=== PATIENT | male | born 1935 | race Asian ===

== ENCOUNTER 2023-05-26 13:54 | Inpatient (IN) | payer OTHER, BC ==
[~2023-05-26] VITALS: Ht 165.1 cm; Wt 50.8 kg
[2023-05-26 15:10] LABS: BASOPHILS % (AUTO) 0.4 % (0.0-2.0); EOSINOPHILS % (AUTO) 0.6 % (0.0-6.0); HEMATOCRIT 32 % (39-51); HEMOGLOBIN 10.1 g/dL (13.5-17.5); LYMPHOCYTES # (AUTO) 0.6 K/uL (0.8-4.8); LYMPHOCYTES % (AUTO) 9.6 % (20.0-44.0); MEAN CORPUSCULAR HEMOGLOBIN 26 PG (26.0-33.0); MEAN CORPUSCULAR HGB CONC 32 g/dl (31.0-36.0); MEAN CORPUSCULAR VOLUME 80 fL (80-96); MONOCYTES # (AUTO) 0.9 K/uL (0.1-1.30); MONOCYTES % (AUTO) 13.6 % (2.0-12.0); NEUTROPHILS # (AUTO) 4.9 K/uL (1.8-8.9); NEUTROPHILS % (AUTO) 75.8 % (43.0-81.0); PLATELET COUNT (AUTO) 259 K/uL (150-450); RED BLOOD CELL COUNT(AUTO) 3.95 MIL/uL (4.5-6.0); RED CELL DISTRIBUTION WIDTH 21.7 % (11.5-15.0); WHITE BLOOD COUNT (AUTO) 6.4 K/uL (4.3-11.0)
[2023-05-26 15:26] LABS: ALANINE AMINOTRANSFERASE 54 U/L (12-78); ALBUMIN 3.4 g/dL (3.4-5.0); ALKALINE PHOSPHATASE 96 U/L (46-116); ASPARTATE AMINOTRANSFERASE 45 U/L (15-37); BILIRUBIN,DIRECT 0.3 mg/dL (0.0-0.2); BILIRUBIN,TOTAL 0.7 mg/dL (0.2-1.0); CALCIUM, SERUM 10.2 mg/dL (8.5-10.1); CARBON DIOXIDE 26 mmol/L (21-32); CHLORIDE 101 mmol/L (98-107); CREATININE 2.1 mg/dL (0.6-1.3); GLUCOSE 116 mg/dL (74-106); POTASSIUM 2.9 mmol/L (3.5-5.1); SODIUM SERUM 140 mmol/L (136-145); TOTAL PROTEIN, SERUM 8.1 g/dL (6.4-8.2); UREA NITROGEN, BLOOD 28 mg/dL (7-18)
[2023-05-26 15:29] LABS: INR 1.07 (0.91-1.10); PROTHROMBIN TIME 11.2 SECS (9.2-11.1)
[2023-05-26] MEDS ORDERED: POTASSIUM CHLORIDE 20 MEQ TAB.PRT.SR PO ONE ×4 (16:00→20:30)
[2023-05-26] MEDS ORDERED: ASPIRIN 81 MG TAB.CHEW ONE (16:13)
[2023-05-26] MEDS ORDERED: AMLO1CAP6 PO (16:28)
[2023-05-26] MEDS ORDERED: METO25TA4 PO (16:28)
[2023-05-26] MEDS ORDERED: TAMS-12 PO (16:28)
[2023-05-26] MEDS ORDERED: ZOLP5TAB8 PO (16:28)
[2023-05-26] MEDS ORDERED: ASPI-1420 PO (16:28)
[2023-05-26] MEDS ORDERED: LORA-259 PO (16:28)
[2023-05-26] MEDS ORDERED: ASPIRIN EC 81 MG TABLET.DR PO ONE (16:30)
[2023-05-26 18:20] VITALS: BP 143/91; TEMP 97.9; O2SAT 96
[2023-05-26 20:00] VITALS: BP 133/84; TEMP 98.1; O2SAT 96
[2023-05-26] MEDS ORDERED: BISACODYL (5 MG) 5 MG TABLET.DR PO ONE (20:30)
[2023-05-26] MEDS ORDERED: ONDANSETRON HCL/PF 4 MG/2 ML VIAL IV PRN (21:00)
[2023-05-26] MEDS ORDERED: ACETAMINOPHEN 325 MG TABLET PO PRN (21:00)
[2023-05-26] MEDS: ATORVASTATIN 10 MG TABLET PO SCH (21:19)
[2023-05-26] MEDS: HEPARIN SODIUM, PORCINE 5000 UNITS/1 ML VIAL SQ SCH (21:25)
[2023-05-26] MEDS: TAMSULOSIN 0.4 MG CAP.SR.24H PO SCH (21:27)
[2023-05-26] MEDS: AMLODIPINE BESYLATE 5 MG TABLET PO SCH (21:27)
[2023-05-26] MEDS: METOPROLOL SUCCINATE 25 MG TAB.SR.24H PO SCH (21:27)
[2023-05-26] MEDS: POLYETHYLENE GLYCOL 3350 17 GM POWD.PACK PO SCH (21:28)
[2023-05-26] MEDS ORDERED: ZOLPIDEM TARTRATE 5 MG TABLET PO ONE (22:00)
[2023-05-27] VITALS: BP 108/69; TEMP 97.9; O2SAT 93
[2023-05-27] MEDS ORDERED: BISACODYL SUPP (10 MG) 10 MG/SUPP.RECT SUPP.RECT RC ONE (02:00)
[2023-05-27] MEDS ORDERED: NA PHOS,M-B/NA PHOS,DI-BA 1 EA ENEMA RC PRN (02:00)
[2023-05-27 04:00] VITALS: BP 124/97; TEMP 97.7; O2SAT 95
[2023-05-27 08:00] VITALS: BP 137/98; TEMP 97.3; O2SAT 93
[2023-05-27] MEDS ORDERED: BUMETANIDE INJ 8 MG in IV NS 0.9% 48 ML IV ONE (08:00)
[2023-05-27] MEDS: ASPIRIN EC 81 MG TABLET.DR PO SCH (08:09)
[2023-05-27] MEDS: METOPROLOL SUCCINATE 25 MG TAB.SR.24H PO SCH ×2 (08:09→09:32)
[2023-05-27] MEDS: TAMSULOSIN 0.4 MG CAP.SR.24H PO SCH ×2 (08:09→16:30)
[2023-05-27] MEDS: AMLODIPINE BESYLATE 5 MG TABLET PO SCH (08:10)
[2023-05-27] MEDS: HEPARIN SODIUM, PORCINE 5000 UNITS/1 ML VIAL SQ SCH ×2 (08:13→21:00)
[2023-05-27 08:14] VITALS: BP 138/80
[2023-05-27] MEDS ORDERED: FUROSEMIDE 40 MG/4 ML VIAL IV SCH (09:00)
[2023-05-27] MEDS ORDERED: HEPARIN SODIUM, PORCINE 5000 UNITS/1 ML VIAL SQ SCH (09:00)
[2023-05-27] MEDS ORDERED: LACTULOSE 10 G/15 ML UDC (PYXIS) PO ONE (09:30)
[2023-05-27 10:03] LABS: BASOPHILS % (AUTO) 0.8 % (0.0-2.0); EOSINOPHILS % (AUTO) 0.3 % (0.0-6.0); HEMATOCRIT 32 % (39-51); HEMOGLOBIN 10.5 g/dL (13.5-17.5); LYMPHOCYTES # (AUTO) 0.5 K/uL (0.8-4.8); LYMPHOCYTES % (AUTO) 8.1 % (20.0-44.0); MEAN CORPUSCULAR HEMOGLOBIN 26 PG (26.0-33.0); MEAN CORPUSCULAR HGB CONC 32 g/dl (31.0-36.0); MEAN CORPUSCULAR VOLUME 80 fL (80-96); MONOCYTES # (AUTO) 0.8 K/uL (0.1-1.30); MONOCYTES % (AUTO) 13.7 % (2.0-12.0); NEUTROPHILS # (AUTO) 4.7 K/uL (1.8-8.9); NEUTROPHILS % (AUTO) 77.1 % (43.0-81.0); PLATELET COUNT (AUTO) 274 K/uL (150-450); RED BLOOD CELL COUNT(AUTO) 4.06 MIL/uL (4.5-6.0); RED CELL DISTRIBUTION WIDTH 21.6 % (11.5-15.0); WHITE BLOOD COUNT (AUTO) 6.1 K/uL (4.3-11.0)
[2023-05-27 10:20] LABS: ALANINE AMINOTRANSFERASE 52 U/L (12-78); ALBUMIN 3.4 g/dL (3.4-5.0); ALKALINE PHOSPHATASE 89 U/L (46-116); ASPARTATE AMINOTRANSFERASE 46 U/L (15-37); BILIRUBIN,TOTAL 0.7 mg/dL (0.2-1.0); CALCIUM, SERUM 9.9 mg/dL (8.5-10.1); CARBON DIOXIDE 25 mmol/L (21-32); CHLORIDE 102 mmol/L (98-107); CREATININE 2.4 mg/dL (0.6-1.3); GLUCOSE 126 mg/dL (74-106); POTASSIUM 3.8 mmol/L (3.5-5.1); SODIUM SERUM 138 mmol/L (136-145); TOTAL PROTEIN, SERUM 8.4 g/dL (6.4-8.2); UREA NITROGEN, BLOOD 31 mg/dL (7-18)
[2023-05-27 10:21] LABS: CHOLESTEROL 187 mg/dL (<200); HDL CHOLESTEROL 82 mg/dL (40-60); LDL 92 mg/dL (0-99); THYROID STIMULATING HORMONE 5.244 uIU/mL (0.358-3.74); TRIGLYCERIDES 60 mg/dL (30-150)
[2023-05-27 10:39] LABS: IRON, SERUM 25 ug/dl (50-175); TOTAL IRON BINDING CAPACITY 391 ug/dl (250-450)
[2023-05-27 11:30] LABS: APPEARANCE,URINE CLEAR (CLEAR); BILIRUBIN,URINE NEGATIVE (NEGATIVE); BLOOD, URINE NEGATIVE Ery/uL (NEGATIVE); COLOR,URINE YELLOW (YELLOW); KETONES,URINE NEGATIVE (NEGATIVE); LEUKOCYTE ESTERASE ,URINE TRACE (NEGATIVE); NITRITE, URINE NEGATIVE (NEGATIVE); PROTEIN,URINE TRACE mg/dl (NEGATIVE); UGLUCOSE NEGATIVE (NEGATIVE); UROBILINOGEN,URINE 0.2 EU/dL (0.2)
[2023-05-27 11:52] LABS: ADD URINE CULTURE NO; BACTERIA,URINE None seen /HPF (None Seen); RBC,URINE 0-2 /HPF (0-2); SQUAMOUS EPITHELIAL CELL,UR Rare /HPF (None Seen)
[2023-05-27 12:00] VITALS: BP 136/96; TEMP 97.7; O2SAT 95
[2023-05-27 16:36] VITALS: BP 112/80; TEMP 95; O2SAT 95
[2023-05-27] MEDS: HYDROCODONE/APAP 5/325MG TABLET PO PRN (16:48)
[2023-05-27] MEDS: ATORVASTATIN 10 MG TABLET PO SCH (21:15)
[2023-05-27] MEDS: POLYETHYLENE GLYCOL 3350 17 GM POWD.PACK PO SCH (21:15)
[2023-05-28 04:22] LABS: APPEARANCE,URINE TURBID (CLEAR); BILIRUBIN,URINE NEGATIVE (NEGATIVE); BLOOD, URINE 3+ Ery/uL (NEGATIVE); COLOR,URINE RED (YELLOW); KETONES,URINE TRACE mg/dL (NEGATIVE); LEUKOCYTE ESTERASE ,URINE 2+ (NEGATIVE); NITRITE, URINE POSITIVE (NEGATIVE); PH,URINE 7.5 (5.0-8.0); PROTEIN,URINE 3+ mg/dl (NEGATIVE); UGLUCOSE NEGATIVE (NEGATIVE)
[2023-05-28 04:26] LABS: ADD URINE CULTURE YES; BACTERIA,URINE Few /HPF (None Seen); RBC,URINE TOO NUMEROUS TO COUN /HPF (0-2); SQUAMOUS EPITHELIAL CELL,UR Rare /HPF (None Seen); WBC,URINE 21-50 /HPF (0-3)
[2023-05-28 04:27] LABS: EOSINOPHIL,URINE None Seen
[2023-05-28 04:31] LABS: CREATININE, URINE 17.1 MG/DL (30.0-125.0); URINE TOTAL PROTEIN 297.8 mg/dL (0-11.9)
[2023-05-28 07:41] LABS: BASOPHILS % (AUTO) 0.4 % (0.0-2.0); EOSINOPHILS % (AUTO) 0.3 % (0.0-6.0); HEMATOCRIT 30 % (39-51); HEMOGLOBIN 9.5 g/dL (13.5-17.5); LYMPHOCYTES # (AUTO) 0.4 K/uL (0.8-4.8); LYMPHOCYTES % (AUTO) 6.6 % (20.0-44.0); MEAN CORPUSCULAR HEMOGLOBIN 26 PG (26.0-33.0); MEAN CORPUSCULAR HGB CONC 32 g/dl (31.0-36.0); MEAN CORPUSCULAR VOLUME 80 fL (80-96); MONOCYTES # (AUTO) 0.9 K/uL (0.1-1.30); MONOCYTES % (AUTO) 13.2 % (2.0-12.0); NEUTROPHILS # (AUTO) 5.3 K/uL (1.8-8.9); NEUTROPHILS % (AUTO) 79.5 % (43.0-81.0); PLATELET COUNT (AUTO) 236 K/uL (150-450); RED BLOOD CELL COUNT(AUTO) 3.69 MIL/uL (4.5-6.0); RED CELL DISTRIBUTION WIDTH 21.3 % (11.5-15.0); WHITE BLOOD COUNT (AUTO) 6.7 K/uL (4.3-11.0)
[2023-05-28 08:03] LABS: CREATINE KINASE, TOTAL 311 U/L (39-308)
[2023-05-28] MEDS: HEPARIN SODIUM, PORCINE 5000 UNITS/1 ML VIAL SQ SCH (08:24)
[2023-05-28 08:41] LABS: CALCIUM, SERUM 9.5 mg/dL (8.5-10.1); CARBON DIOXIDE 25 mmol/L (21-32); CHLORIDE 102 mmol/L (98-107); CREATININE 2.5 mg/dL (0.6-1.3); GLUCOSE 112 mg/dL (74-106); MAGNESIUM 2.1 mg/dL (1.8-2.4); PHOSPHORUS 4.7 mg/dL (2.5-4.9); POTASSIUM 3.4 mmol/L (3.5-5.1); SODIUM SERUM 142 mmol/L (136-145); UREA NITROGEN, BLOOD 37 mg/dL (7-18)
[2023-05-28 08:54] LABS: ALANINE AMINOTRANSFERASE 44 U/L (12-78); ALKALINE PHOSPHATASE 84 U/L (46-116); ASPARTATE AMINOTRANSFERASE 41 U/L (15-37); BILIRUBIN,TOTAL 0.7 mg/dL (0.2-1.0); TOTAL PROTEIN, SERUM 7.3 g/dL (6.4-8.2)
[2023-05-28] MEDS ORDERED: MINERAL OIL 133 ML (PYXIS) 1 EA ENEMA RC ONE (09:00)
[2023-05-28] MEDS: ASPIRIN EC 81 MG TABLET.DR PO SCH (09:19)
[2023-05-28] MEDS: FINASTERIDE (5 MG) 5 MG TABLET PO SCH (09:19)
[2023-05-28] MEDS: AMLODIPINE BESYLATE 5 MG TABLET PO SCH (09:19)
[2023-05-28] MEDS: TAMSULOSIN 0.4 MG CAP.SR.24H PO SCH ×2 (09:19→18:09)
[2023-05-28] MEDS: METOPROLOL SUCCINATE 25 MG TAB.SR.24H PO SCH (09:20)
[2023-05-28] MEDS: CEFTRIAXONE 1 G in IV D5W 50 ML IV SCH (09:58)
[2023-05-28] MEDS ORDERED: POTASSIUM CHLORIDE 10 MEQ TABLET.SA PO ONE (10:00)
[2023-05-28 10:36] VITALS: BP 119/62; TEMP 98.6; O2SAT 97
[2023-05-28] MEDS: SOD FERRIC GLUC 125 MG in IV NS 0.9% 100 ML IV SCH (14:17)
[2023-05-28] MEDS ORDERED: POTASSIUM CHLORIDE 20 MEQ TAB.PRT.SR PO ONE (17:30)
[2023-05-28] MEDS ORDERED: BUMETANIDE INJ 4 MG in IV NS 0.9% 24 ML IV ONE (17:30)
[2023-05-28 20:00] VITALS: BP 122/82; TEMP 98.1; O2SAT 95
[2023-05-28] MEDS: POLYETHYLENE GLYCOL 3350 17 GM POWD.PACK PO SCH (22:17)
[2023-05-28] MEDS: ATORVASTATIN 10 MG TABLET PO SCH (22:18)
[2023-05-29] VITALS: BP 126/54; TEMP 98; O2SAT 95
[2023-05-29 04:00] VITALS: BP 126/52; TEMP 98.1; O2SAT 96
[2023-05-29 06:06] LABS: PTH, INTACT 15 pg/mL (15-65)
[2023-05-29 06:15] LABS: BASOPHILS % (AUTO) 0.6 % (0.0-2.0); EOSINOPHILS # (AUTO) 0.1 K/uL (0.0-0.7); EOSINOPHILS % (AUTO) 1.1 % (0.0-6.0); HEMATOCRIT 32 % (39-51); HEMOGLOBIN 10.3 g/dL (13.5-17.5); LYMPHOCYTES # (AUTO) 0.5 K/uL (0.8-4.8); MEAN CORPUSCULAR HEMOGLOBIN 26 PG (26.0-33.0); MEAN CORPUSCULAR HGB CONC 32 g/dl (31.0-36.0); MEAN CORPUSCULAR VOLUME 80 fL (80-96); MONOCYTES # (AUTO) 0.9 K/uL (0.1-1.30); MONOCYTES % (AUTO) 11.7 % (2.0-12.0); NEUTROPHILS # (AUTO) 6.2 K/uL (1.8-8.9); NEUTROPHILS % (AUTO) 79.6 % (43.0-81.0); PLATELET COUNT (AUTO) 223 K/uL (150-450); RED CELL DISTRIBUTION WIDTH 20.5 % (11.5-15.0); WHITE BLOOD COUNT (AUTO) 7.7 K/uL (4.3-11.0)
[2023-05-29 06:53] LABS: CALCIUM, SERUM 8.7 mg/dL (8.5-10.1); CARBON DIOXIDE 27 mmol/L (21-32); CHLORIDE 103 mmol/L (98-107); CREATININE 2.2 mg/dL (0.6-1.3); GLUCOSE 98 mg/dL (74-106); MAGNESIUM 1.8 mg/dL (1.8-2.4); POTASSIUM 2.9 mmol/L (3.5-5.1); SODIUM SERUM 143 mmol/L (136-145); UREA NITROGEN, BLOOD 36 mg/dL (7-18)
[2023-05-29 07:03] LABS: ERYTHROCYTE SEDIMENTATION RATE 31 MM/HR (0-20)
[2023-05-29 08:00] VITALS: BP 136/70; TEMP 98; O2SAT 95
[2023-05-29 08:06] LABS: *SPE A/G RATIO 1.1 (0.7-1.7); *SPE ALBUMIN 3.3 g/dL (2.9-4.4); *SPE ALPHA-1-GLOBULIN 0.3 g/dL (0.0-0.4); *SPE ALPHA-2-GLOBULIN 0.6 g/dL (0.4-1.0); *SPE BETA GLOBULIN 0.9 g/dL (0.7-1.3); *SPE GLOBULIN, TOTAL 3.1 g/dL (2.2-3.9); *SPE M-SPIKE Not Observed g/dL (Not Observed); *SPE PROTEIN TOTAL 6.4 g/dL (6.0-8.5); *SPEGAMMA GLOBULIN 1.3 g/dL (0.4-1.8)
[2023-05-29] MEDS: CEFTRIAXONE 1 G in IV D5W 50 ML IV SCH (08:37)
[2023-05-29] MEDS: AMLODIPINE BESYLATE 5 MG TABLET PO SCH (08:38)
[2023-05-29] MEDS: FINASTERIDE (5 MG) 5 MG TABLET PO SCH (08:38)
[2023-05-29] MEDS: POTASSIUM CHLORIDE 20 MEQ TAB.PRT.SR PO SCH ×5 (08:38→13:42)
[2023-05-29] MEDS: ASPIRIN EC 81 MG TABLET.DR PO SCH (08:38)
[2023-05-29] MEDS: METOPROLOL SUCCINATE 25 MG TAB.SR.24H PO SCH (08:39)
[2023-05-29] MEDS: TAMSULOSIN 0.4 MG CAP.SR.24H PO SCH ×2 (08:39→17:54)
[2023-05-29] MEDS: ENSURE ENLIVE 237 ML LIQUID (VANILLA) PO SCH ×2 (09:19→17:55)
[2023-05-29 12:00] VITALS: BP 101/78; TEMP 98.5; O2SAT 99
[2023-05-29] MEDS: SOD FERRIC GLUC 125 MG in IV NS 0.9% 100 ML IV SCH (14:14)
[2023-05-29] MEDS: FUROSEMIDE 100 MG/10 ML VIAL IV SCH ×3 (14:30→23:00)
[2023-05-29 16:00] VITALS: BP 106/76; TEMP 97.7; O2SAT 96
[2023-05-29 20:00] VITALS: BP 104/64; TEMP 98; O2SAT 98
[2023-05-29] MEDS: POLYETHYLENE GLYCOL 3350 17 GM POWD.PACK PO SCH (21:26)
[2023-05-29] MEDS: ATORVASTATIN 10 MG TABLET PO SCH (21:26)
[2023-05-30] VITALS: BP 102/67; TEMP 97.5; O2SAT 98
[2023-05-30 04:00] VITALS: BP 98/57; TEMP 98.1; O2SAT 97
[2023-05-30 05:08] LABS: HEPATITIS B SURFACE AB Non Reactive (.)
[2023-05-30 07:06] LABS: COMPLEMENT C3, SERUM 100 mg/dL (82-167); COMPLEMENT C4, SERUM 29 mg/dL (12-38)
[2023-05-30] MEDS: FINASTERIDE (5 MG) 5 MG TABLET PO SCH (08:12)
[2023-05-30] MEDS: ASPIRIN EC 81 MG TABLET.DR PO SCH (08:12)
[2023-05-30] MEDS: TAMSULOSIN 0.4 MG CAP.SR.24H PO SCH ×2 (08:12→16:36)
[2023-05-30] MEDS: ENSURE ENLIVE 237 ML LIQUID (VANILLA) PO SCH ×2 (08:15→17:13)
[2023-05-30] MEDS: METOPROLOL SUCCINATE 25 MG TAB.SR.24H PO SCH (08:23)
[2023-05-30] MEDS: AMLODIPINE BESYLATE 5 MG TABLET PO SCH (08:23)
[2023-05-30] MEDS: CEFTRIAXONE 1 G in IV D5W 50 ML IV SCH (08:58)
[2023-05-30] MEDS ORDERED: POTASSIUM CHLORIDE 20 MEQ TAB.PRT.SR PO SCH (09:00)
[2023-05-30] MEDS ORDERED: METO25TA4 PO (09:01)
[2023-05-30] MEDS ORDERED: FINA5TAB3 PO (09:01)
[2023-05-30] MEDS ORDERED: FURO-144 PO (09:01)
[2023-05-30] MEDS ORDERED: CEPH250C PO (09:03)
[2023-05-30 09:29] LABS: BASOPHILS % (AUTO) 0.3 % (0.0-2.0); EOSINOPHILS # (AUTO) 0.3 K/uL (0.0-0.7); EOSINOPHILS % (AUTO) 2.8 % (0.0-6.0); HEMATOCRIT 33 % (39-51); HEMOGLOBIN 10.2 g/dL (13.5-17.5); LYMPHOCYTES # (AUTO) 0.3 K/uL (0.8-4.8); LYMPHOCYTES % (AUTO) 3.8 % (20.0-44.0); MEAN CORPUSCULAR HEMOGLOBIN 25 PG (26.0-33.0); MEAN CORPUSCULAR HGB CONC 31 g/dl (31.0-36.0); MEAN CORPUSCULAR VOLUME 82 fL (80-96); MONOCYTES # (AUTO) 0.8 K/uL (0.1-1.30); MONOCYTES % (AUTO) 8.7 % (2.0-12.0); NEUTROPHILS # (AUTO) 7.8 K/uL (1.8-8.9); NEUTROPHILS % (AUTO) 84.4 % (43.0-81.0); PLATELET COUNT (AUTO) 257 K/uL (150-450); RED BLOOD CELL COUNT(AUTO) 4.01 MIL/uL (4.5-6.0); RED CELL DISTRIBUTION WIDTH 20.7 % (11.5-15.0); WHITE BLOOD COUNT (AUTO) 9.3 K/uL (4.3-11.0)
[2023-05-30] MEDS: FUROSEMIDE 40 MG TABLET PO SCH (09:36)
[2023-05-30 09:43] LABS: ALANINE AMINOTRANSFERASE 40 U/L (12-78); ALBUMIN 2.8 g/dL (3.4-5.0); ALKALINE PHOSPHATASE 82 U/L (46-116); ASPARTATE AMINOTRANSFERASE 41 U/L (15-37); BILIRUBIN,TOTAL 0.4 mg/dL (0.2-1.0); CALCIUM, SERUM 8.8 mg/dL (8.5-10.1); CARBON DIOXIDE 27 mmol/L (21-32); CHLORIDE 104 mmol/L (98-107); CREATININE 2.1 mg/dL (0.6-1.3); GLUCOSE 201 mg/dL (74-106); MAGNESIUM 1.9 mg/dL (1.8-2.4); PHOSPHORUS 3.1 mg/dL (2.5-4.9); POTASSIUM 3.6 mmol/L (3.5-5.1); SODIUM SERUM 138 mmol/L (136-145); TOTAL PROTEIN, SERUM 7.3 g/dL (6.4-8.2); UREA NITROGEN, BLOOD 40 mg/dL (7-18)
[2023-05-30] MEDS: POTASSIUM CHLORIDE 20 MEQ TAB.PRT.SR PO SCH ×2 (09:54→10:00)
[2023-05-30 12:07] LABS: *ANA ANTI-CENTROMERE B AB <0.2 AI (0.0-0.9); *ANA ANTI-DNA(DS) AB, QN <1 IU/mL (0-9); *ANA ANTI-JO-1 <0.2 AI (0.0-0.9); *ANA ANTICHROMATIN ANTIBODY 0.2 AI (0.0-0.9); *ANA RNP ANTIBODIES <0.2 AI (0.0-0.9); *ANA SJOGREN'S ANTI-SS-A >8.0 AI (0.0-0.9); *ANA SJOGREN'S ANTI-SS-B <0.2 AI (0.0-0.9); *ANAANTI-SCLERODERMA-70 AB <0.2 AI (0.0-0.9); *ANASMITH AB <0.2 AI (0.0-0.9)
[2023-05-30] MEDS: SOD FERRIC GLUC 125 MG in IV NS 0.9% 100 ML IV SCH (14:11)
[2023-05-30 20:00] VITALS: BP 105/73; TEMP 97.6; O2SAT 93
[2023-05-30] MEDS: HYDROCODONE/APAP 5/325MG TABLET PO PRN (20:11)
[2023-05-30] MEDS: POLYETHYLENE GLYCOL 3350 17 GM POWD.PACK PO SCH (21:37)
[2023-05-30] MEDS: ATORVASTATIN 10 MG TABLET PO SCH (21:37)
[2023-05-31] VITALS: BP 134/90; TEMP 97.5; TEMP 97.8; O2SAT 95
[2023-05-31 04:00] VITALS: BP 100/62; TEMP 97.8; O2SAT 99
[2023-05-31] MEDS: ENSURE ENLIVE 237 ML LIQUID (VANILLA) PO SCH (07:42)
[2023-05-31 08:28] VITALS: BP 98/62
[2023-05-31] MEDS: TAMSULOSIN 0.4 MG CAP.SR.24H PO SCH (08:28)
[2023-05-31] MEDS: FINASTERIDE (5 MG) 5 MG TABLET PO SCH (08:28)
[2023-05-31] MEDS: METOPROLOL SUCCINATE 25 MG TAB.SR.24H PO SCH (08:28)
[2023-05-31] MEDS: FUROSEMIDE 40 MG TABLET PO SCH (08:28)
[2023-05-31] MEDS: ASPIRIN EC 81 MG TABLET.DR PO SCH (08:28)
[2023-05-31] MEDS: CEFTRIAXONE 1 G in IV D5W 50 ML IV SCH (08:28)
[2023-06-02 08:07] LABS: *PEU PROTEIN,TOTAL 28.6 mg/dL (Not Estab.); *PEUR ALBUMIN 43.6 % (.); *PEUR ALPHA-1-GLOBULIN 5.2 % (.); *PEUR ALPHA-2-GLOBULIN 12.9 % (.); *PEUR BETA GLOBULIN 20.5 % (.); *PEUR GAMMA GLOBULIN 17.9 % (.)
== END 2023-05-31 13:17 | DRG 280 ==
LOC: ER 13:56 → TELE 17:30 → MED 05-30 10:19
PROVIDERS: ADMIT Internal Medicine; ATTEND Internal Medicine
DX: I13.0 Hypertensive heart and chronic kidney disease with heart failure and stage 1 through stage 4 chronic kidney disease, or unspecified chronic kidney disease (principal); I21.A1 Myocardial infarction type 2; I50.23 Acute on chronic systolic (congestive) heart failure; N17.0 Acute kidney failure with tubular necrosis; N13.6 Pyonephrosis; I42.0 Dilated cardiomyopathy; N18.9 Chronic kidney disease, unspecified; E87.6 Hypokalemia; K59.00 Constipation, unspecified; Z88.0 Allergy status to penicillin; I25.2 Old myocardial infarction; D50.9 Iron deficiency anemia, unspecified; N40.1 Benign prostatic hyperplasia with lower urinary tract symptoms; R33.8 Other retention of urine; D17.79 Benign lipomatous neoplasm of other sites; R31.9 Hematuria, unspecified; Z20.822 Contact with and (suspected) exposure to COVID-19
CPT/HCPCS: 36415; 71045-TC; 74021; 76770-TC; 80048-TC; 80053-TC; 80061-TC; 80076-TC; 81001; 82550-TC; 82570-TC; 83540-TC; 83735-TC; 83970; 84100-TC; 84155; 84156; 84165; 84166; 84300-TC; 84439-TC; 84443-TC; 84484-TC; 85025-TC; 85652-TC; 85730-TC; 86225; 86235; 86706; 86803; 87086-TC; 87340; 93307-TC; 97110-TC; 97116-TC; 97530-TC; G0378; J0696; J1644; J1940; J2916; J3490; J7030; J7060

== ENCOUNTER 2023-06-09 10:59 | Emergency (ER) | payer OTHER, BC ==
[~2023-06-09] VITALS: Ht 162.6 cm; Wt 50.8 kg
[~2023-06-09 10:59] MED LIST: ASPI-1420 PO; CEPH250C PO; FINA5TAB3 PO; FURO-144 PO; LORA-259 PO; METO25TA4 PO; TAMS-12 PO; ZOLP5TAB8 PO
[2023-06-09 11:44] VITALS: BP 100/66; TEMP 98.5; O2SAT 98
== END 2023-06-09 11:55 | disposition home or self-care (01) ==
LOC: ER 11:03
DX: Z46.6 Encounter for fitting and adjustment of urinary device (principal); Z79.899 Other long term (current) drug therapy; Z98.890 Other specified postprocedural states; Z88.0 Allergy status to penicillin